=== PATIENT | female | born 1950 | race Two or more races ===

== ENCOUNTER 2017-08-22 07:42 | Outpatient (CLI) | payer OTHER | END 2017-08-22 07:47 | disposition home or self-care (01) | LOC: LAB 07:42 | DX: E78.4 Other hyperlipidemia (principal); Z12.11 Encounter for screening for malignant neoplasm of colon ==

== ENCOUNTER 2017-10-24 07:12 | Outpatient (CLI) | payer OTHER | END 2017-10-24 07:22 | disposition home or self-care (01) | LOC: LAB 07:12 | DX: E78.4 Other hyperlipidemia (principal); R73.03 Prediabetes ==

== ENCOUNTER → 2017-11-30 06:13 | Outpatient (CLI) | payer OTHER | END | disposition home or self-care (01) | LOC: LAB 06:13 | DX: E78.49 Other hyperlipidemia (principal) ==

== ENCOUNTER 2017-12-30 16:09 | Outpatient (CLI) | payer OTHER | END 2017-12-30 16:18 | disposition home or self-care (01) | LOC: LAB 16:09 | DX: D64.89 Other specified anemias (principal); R79.1 Abnormal coagulation profile ==

== ENCOUNTER → 2018-02-16 | Emergency (ER) | payer OTHER ==
[~2018-02-16] VITALS: Ht 162.6 cm; Wt 63.5 kg
[~2018-02-16] MED LIST: OSEL75CA PO; TUSSI PRES-B L120 M1 PO
== END | disposition home or self-care (01) ==
LOC: ER 08:14
DX: R42 Dizziness and giddiness (principal); B34.9 Viral infection, unspecified

== ENCOUNTER 2018-02-25 07:06 | Outpatient (CLI) | payer OTHER | END 2018-02-25 07:47 | disposition home or self-care (01) | LOC: LAB 07:06 | DX: N30.00 Acute cystitis without hematuria (principal); I10 Essential (primary) hypertension; E03.8 Other specified hypothyroidism; E78.49 Other hyperlipidemia; D50.8 Other iron deficiency anemias ==

== ENCOUNTER 2019-01-18 06:09 | Outpatient (CLI) | payer OTHER | END 2019-01-18 06:22 | disposition home or self-care (01) | LOC: LAB 06:09 | DX: N30.00 Acute cystitis without hematuria (principal); R73.03 Prediabetes; E03.8 Other specified hypothyroidism; E78.00 Pure hypercholesterolemia, unspecified ==

== ENCOUNTER 2019-12-13 06:16 | Outpatient (CLI) | payer OTHER | END 2019-12-13 06:29 | disposition home or self-care (01) | LOC: LAB 06:16 | PROVIDERS: ATTEND Family Medicine | DX: N30.00 Acute cystitis without hematuria (principal); I10 Essential (primary) hypertension; R73.03 Prediabetes; E78.00 Pure hypercholesterolemia, unspecified; D50.8 Other iron deficiency anemias; Z86.010 Personal history of colon polyps; Z12.11 Encounter for screening for malignant neoplasm of colon ==

== ENCOUNTER 2020-10-06 07:15 | Outpatient (CLI) | payer OTHER | END 2020-10-06 07:28 | disposition home or self-care (01) | LOC: CIR.AMB 07:15 → LAB 07:15 | DX: D50.8 Other iron deficiency anemias (principal); N30.00 Acute cystitis without hematuria; E78.00 Pure hypercholesterolemia, unspecified; I11.9 Hypertensive heart disease without heart failure; E11.9 Type 2 diabetes mellitus without complications; Z12.11 Encounter for screening for malignant neoplasm of colon ==

== ENCOUNTER 2020-11-23 08:01 | Outpatient (CLI) | payer OTHER | END 2020-11-23 08:11 | disposition home or self-care (01) | LOC: MAMO-SONO 08:01 | PROVIDERS: ATTEND Family Medicine | DX: N60.11 Diffuse cystic mastopathy of right breast (principal); N60.12 Diffuse cystic mastopathy of left breast ==

== ENCOUNTER 2021-03-02 08:03 | Outpatient (CLI) | payer OTHER | END 2021-03-02 08:10 | disposition home or self-care (01) | LOC: RAD 08:03 | PROVIDERS: ATTEND Family Medicine | DX: M75.51 Bursitis of right shoulder (principal) ==

== ENCOUNTER 2021-05-06 16:20 | Outpatient (CLI) | payer OTHER | END 2021-05-06 16:25 | disposition home or self-care (01) | LOC: RAD 16:20 | PROVIDERS: ATTEND Family Medicine | DX: R06.00 Dyspnea, unspecified (principal); M17.12 Unilateral primary osteoarthritis, left knee ==

== ENCOUNTER 2021-05-08 06:25 | Outpatient (CLI) | payer OTHER | END 2021-05-08 06:26 | disposition home or self-care (01) | LOC: LAB 06:25 | PROVIDERS: ATTEND Family Medicine | DX: R73.03 Prediabetes (principal); E78.00 Pure hypercholesterolemia, unspecified; M17.12 Unilateral primary osteoarthritis, left knee; E03.9 Hypothyroidism, unspecified ==

== ENCOUNTER 2021-07-18 06:14 | Outpatient (CLI) | payer OTHER ==
[~2021-07-18 06:14] MED LIST changes: +VOLTAREN ARTHRI20 GM TOP
== END 2021-07-18 06:20 | disposition home or self-care (01) ==
LOC: LAB 06:14
PROVIDERS: ATTEND Family Medicine
DX: M50.10 Cervical disc disorder with radiculopathy, unspecified cervical region (principal)

== ENCOUNTER 2021-07-18 11:18 | Outpatient (CLI) | payer OTHER | END 2021-07-18 11:32 | disposition home or self-care (01) | LOC: MRI 11:18 | PROVIDERS: ATTEND Family Medicine | DX: M50.10 Cervical disc disorder with radiculopathy, unspecified cervical region (principal) | CPT/HCPCS: 72142 ==

== ENCOUNTER 2022-03-14 08:47 | Emergency (ER) | payer OTHER ==
[~2022-03-14] VITALS: Ht 162.6 cm; Wt 63.5 kg
[~2022-03-14 08:47] MED LIST changes: +ARTHRITIS PAIN150 GM TOP; +ETODOLAC300 MG PO
== END 2022-03-14 12:08 | disposition home or self-care (01) ==
LOC: ER 08:47
DX: S91.342A Puncture wound with foreign body, left foot, initial encounter (principal); W45.8XXA Other foreign body or object entering through skin, initial encounter; Y93.9 Activity, unspecified; Y92.9 Unspecified place or not applicable; Z91.018 Allergy to other foods

== ENCOUNTER 2022-03-29 07:14 | Outpatient (CLI) | payer OTHER | END 2022-03-29 07:15 | disposition home or self-care (01) | LOC: LAB 07:14 | PROVIDERS: ATTEND Family Medicine | DX: D50.9 Iron deficiency anemia, unspecified (principal); N30.00 Acute cystitis without hematuria; I10 Essential (primary) hypertension; E78.00 Pure hypercholesterolemia, unspecified; E11.9 Type 2 diabetes mellitus without complications; Z12.11 Encounter for screening for malignant neoplasm of colon; E55.9 Vitamin D deficiency, unspecified ==

== ENCOUNTER 2022-06-14 07:43 | Outpatient (CLI) | payer OTHER | END 2022-06-14 07:51 | disposition home or self-care (01) | LOC: LAB 07:43 | PROVIDERS: ATTEND Family Medicine | DX: E78.00 Pure hypercholesterolemia, unspecified (principal) ==

== ENCOUNTER → 2022-08-25 06:22 | Outpatient (CLI) | payer OTHER | END | disposition home or self-care (01) | LOC: LAB 06:22 | PROVIDERS: ATTEND Family Medicine | DX: E11.9 Type 2 diabetes mellitus without complications (principal); E78.00 Pure hypercholesterolemia, unspecified ==

== ENCOUNTER → 2022-10-09 06:07 | Outpatient (CLI) | payer OTHER | END | disposition home or self-care (01) | LOC: LAB 06:07 | PROVIDERS: ATTEND Family Medicine | DX: E78.2 Mixed hyperlipidemia (principal) ==